=== PATIENT | male | born 1960 | race Hispanic/Latino ===

== ENCOUNTER 2025-05-21 18:02 | Emergency (ER) | payer BC ==
[~2025-05-21] VITALS: Ht 165.1 cm; Wt 83.9 kg
--- NOTE | 2025-05-21 18:15 | ERN ---
ED Note History of Present Illness Stated Complaint: DOG BITE Chief Complaint: Animal Bite Time Seen by MD: 18:03 Time Seen by Midlevel: 18:04 Dictation: 64-year-old male presents to the emergency department due to report of having sustained a dog bite wound to the left wrist today at 4:30 p.m.. He states that this occurred at his house. The patient states that he was attempting to separate his 2 dogs when 1 of them bit him of the left wrist. Initially, his level of discomfort as an 8/10. At this time, he reports his level of discomfort as a 2/10. The patient states that he was evaluated by states. He states that he was evaluated by EMS on the site which rendered 1st aid. Upon initial evaluation, the patient presents with a normal neurovascular ex amination. 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 Past Medical History: Hypertension Surgical History: None PSYCH History: no pertinent psych hx RN Note Reviewed/Agreed w/PFSH: Yes Review of System Dictation MS/Extremity: Left wrist pain Skin: Dog bite Left wrist Initial Vital Sign VS Vital Signs Date Time Temp Pulse Resp B/P (MAP) Pulse Ox O2 Delivery O2 Flow Rate FiO2 05/21/25 18:03 98.6 78 18 162/98 99 05/21/25 19:27 Room Air* 0 21 Physical Exam Dictation General: awake, alert, NAD Head/Face: Normocephalic, atraumatic Eyes: PERRL, EOMI ENT: Oral mucosa moist Neck: Trachea midline, supple Cardiovascular: RRR, no edema Respiratory: Symmetrical, non-labored Abdomen: Soft, non-tender, non-distended, no guarding. Skin: Single nonbleeding puncture wound to the left wrist along the dorsal aspect measuring 1 cm that is subcutaneous and linear. Gaping dog bite/ laceration to the palmar aspect measuring 3 cm that is linear and subcutaneous. MS/Extremity: Pulses equal, no cyanosis, neurovascular intact, Neuro: COAx4, GCS 15, steady gait, Psych: Normal behavior, mood, and affect normal Results (Laboratory/Radiology) X-RAY Comment: Three-view x-ray of the left wrist with no cortical anomalies or radiopaque foreign bodies as interpreted by me. ED Course ED Course Orders Procedure Category Date Status Time Wrist Comp 3+Vws Lt RAD 05/21/25 Logged 18:08 Tetanus,Diphtheria PHA 05/21/25 Complete Tox [Adult] (Diphther 18:30 Acetaminophen 500mg PHA 05/21/25 Complete Tab (Tylenol 500mg T 18:30 Wound Care (Er) CPOE 05/21/25 Transmitted 18:08 Laceration Tray Set CPOE 05/21/25 Transmitted Up (Er) 18:08 Lidocaine Hcl 1% 20ml PHA 05/21/25 In Process Vial (Lidocaine Hc 18:30 Ceftriaxone 1g Vial PHA 05/21/25 Complete (Rocephine 1g Inj) 18:30 Current Medications Medications (Trade) Dose Ordered Sig/Tea Route PRN Reason Start Time Stop Time Status Last Admin Dose Admin Acetaminophen (TYLenol 500MG TAB) 1,000 mg ONCE ONCE PO 05/21/25 18:30 05/21/25 18:31 DC 05/21/25 19:42 Ceftriaxone Sodium (ROCEphine 1G INJ) 1 gm ONCE ONCE IM 05/21/25 18:30 05/21/25 18:32 DC 05/21/25 19:41 Lidocaine HCl (Lidocaine HCl 1% 20ml Vial) ONCE INJ 05/21/25 18:30 06/20/25 18:29 05/21/25 19:41 Tetanus/ Diphtheria Toxoids Adsorbed (DiphthERIA-teTANUS TOXOID [ADULT]/ DECAVAC) 0.5 ml ONCE ONCE IM 05/21/25 18:30 05/21/25 18:31 DC 05/21/25 19:43 Vital Signs Date Time Temp Pulse Resp B/P (MAP) Pulse Ox O2 Delivery O2 Flow Rate FiO2 05/21/25 19:27 98.6 72 18 147/72 99 Room Air* 0 21 05/21/25 18:03 98.6 78 18 162/98 99 Medical Decision Making MDM MDM: Differential diagnosis: Dog bite left wrist, puncture wound left wrist, foreign body left wrist. Rationale: Tests considered and ordered secondary to shared decision making inc lude: Previous outside records reviewed: Old ER visits. Risk of complication and/or morbidity or mortality of patient management: None Medications-Per medication reconciliation Need for hospitalization: Patient does not meet criteria for hospitalization. Need for emergency major/minor surgery: No There are no social concerns with this patient. Prescription drug management Prescriptions will include symptomatic care Patient's prior external medical records from other ER visits were reviewed by me as indicated. Prior testing and results from previous visits were reviewed. Prior tests were taken into account with medical decision making and resource utilization, independent historian/historians were used to obtain complete medical history. I independently interpreted the test that were performed, results were reviewed by me and considered findings on radiology if ordered. Medical management and examination interpretation discussions were had by me with other qualified healthcare professionals as indicated for the patient's care. Treatment included thorough irrigation with the exploration of the wound with no identified foreign bodies which was also noted her three-view x-ray of the left wrist. Laceration repair was done for which the patient tolerated well. He will be placed on the oral antibiotics and a thorough discussion was done enlarged for monitoring for signs and symptoms of infection for which the patient tolera lowe and agrees with the patient the agrees to the treatment plan of care Procedure Procedure Dictation: Wound closure done to both lacerations to the left wrist. Palmar aspect with 3 sutures of 4 0. Dorsal aspect closed with 1 suture of 4 0. Wound Location: upper extremity Wound Length (cm): 3 Wound's Depth, Shape: linear Wound Explored: clean Irrigated w/ Saline (ccs): 200 Anesthesia: 1% Lidocaine Volume Anesthetic (ccs): 5 Wound Repaired With: sutures Suture Size/Type: 4:0 Number of Sutures: 4 DX & DISP Disposition: Discharge Departure Impression: Primary Impression: Dog bite of left wrist Condition: Stable Scripts Amoxicillin/Potassium Clav (Amox Tr-K Clv 875-125 mg Tab) 875 Mg-125 Mg Tablet 1 EACH PO BID for 10 Days, #10 TAB 0 Refills Prov: MOISES IRBY 05/21/25 Time of Disposition: 20:09 MOISES IRBY May 21, 2025 18:15
[2025-05-21] MEDS: LIDOCAINE HCL 1% 20 ML VIAL INJ SCH (19:41)
[2025-05-21] MEDS ORDERED: AMOX1TAB16 PO (20:11)
[2025-05-21 20:51] VITALS: BP 136/68; PULSE 76; RESP 20; TEMP 98.5; O2SAT 98
--- NOTE | 2025-05-21 21:11 | NUR ---
SUTURES DRESSED, PT TOLERATED WELL
--- NOTE | 2025-05-21 21:16 | HMCIMG ---
EXAM: CR left Wrist, 3 View. CLINICAL HISTORY: Dog bite COMPARISON: None provided. FINDINGS: BONES: No acute osseous abnormality. No acute fracture. JOINTS: No dislocation. The carpal bones demonstrate normal alignment. SOFT TISSUES: Edema and subcutaneous emphysema within the soft tissues of the distal left forearm. IMPRESSION: 1. Soft tissue edema and subcutaneous emphysema in the distal left forearm, consistent with dog bite. 2. No acute osseous injury. /[place]
== END 2025-05-21 21:11 | disposition home or self-care (01) ==
LOC: EDH 18:02
DX: S61.512A Laceration without foreign body of left wrist, initial encounter (principal); I10 Essential (primary) hypertension; W54.0XXA Bitten by dog, initial encounter; Y93.89 Activity, other specified; Y92.89 Other specified places as the place of occurrence of the external cause; Y99.8 Other external cause status
CPT/HCPCS: 99284; 90714; 73110; 90471; 12002; 96372; J2003; J0696